=== PATIENT | female | born 1970 | race African-American/Black ===

== ENCOUNTER 2019-06-05 04:36 | Emergency (ER) | payer SELFPAY ==
[~2019-06-05] VITALS: Ht 160 cm; Wt 59.4 kg
[2019-06-05 04:44] VITALS: Ht 160 cm; Wt 59.4 kg
[2019-06-05 05:38] VITALS: BP 104/63
== END 2019-06-05 05:38 | disposition home or self-care (01) ==
LOC: ED 04:36
DX: B34.9 Viral infection, unspecified (principal); J20.8 Acute bronchitis due to other specified organisms